=== PATIENT | female | born 1990 | race Caucasian/White ===

== ENCOUNTER 2020-09-01 15:35 | Emergency (ER) | payer OTHER ==
[~2020-09-01] VITALS: Ht 154.9 cm; Wt 59.0 kg
[~2020-09-01 15:35] MED LIST: NAPR220C2 PO
[2020-09-01 15:46] VITALS: BP 163/94
[2020-09-01 15:49] VITALS: BP 163/94
[2020-09-01] MEDS ORDERED: ADACEL VIAL IM ONE (16:23)
[2020-09-01] MEDS ORDERED: TRIPLE ANTIBIOTIC OINTMENT TP ONE (16:23)
--- NOTE | 2020-09-01 16:37 | DIREP ---
PROCEDURE:XRAY FOREARM 2 VWS-RT COMPARISON:None. INDICATIONS:RT ARM PAIN S/P FALL ON ICE FINDINGS: BONES:Normal. JOINTS:Normal. SOFT TISSUES:Normal. OTHER:No additional findings. CONCLUSION: 1. No acute fracture or dislocation. Dictated by: Chris Dillard MD on 09/01/2020 at 04:34 PM
--- NOTE | 2020-09-01 16:47 | ER.PDOC ---
General Chief Complaint: Extremities Stated Complaint: WRIST INJURY Time seen by MD: 16:30 Source: patient Exam Limitations: no limitations History of Present Illness Initial Comments pt fell 48 hours ago and sustained a hyperextension injury of her right wrist. no other injuries. Recent Injury: Yes Where: street Severity: moderate Exacerbated By: movement of Relieved By: rest Quality: pain Allergies: Coded Allergies: No Known Allergies (Unverified , 02/13/15) Home Meds Reported Medications Naproxen Sodium (ALEVE) 220 Mg Capsule, 220 MG PO DAILY, CAPSULE 02/15/16 Past Medical History Medical History: other (anemia) Surgical History: no surgical history, tonsillectomy LMP (females 10-50): last week Social History Alcohol Use: none Drug Use: marijuana Review of Systems Musculoskeletal: see HPI All Other Systems: Reviewed and Negative Physical Exam General Appearance: alert, no distress, other (wrist pain only on flex/extension. no pain with axial loading) Upper Extremity: tenderness Skin: color nml, warm/dry Vascular: no vascular compromise Neuro/Psych: sensation nml, motor nml Central Exam: oriented X3, CN's nml as tested, nml speech, nml cognition, nml mood/affect EENT: eyes nml inspection Neck/Back: nml inspection Respiratory: no resp distress CVS: reg rate & rhythm Abdomen: non-tender, nml bowels sounds Results/Orders Results/Orders Orders - HAIDER CORNEJO MD Xr Forearm Rt (09/01/20 16:14) Neomycin/Bacitracin/Polymyxinb (Triple A (09/01/20 16:23) Diph,Pertuss(Acell),Tet Vac/Pf (Adacel V (09/01/20 16:23) Vital Signs Date Time Temp Pulse Resp B/P (MAP) Pulse Ox O2 Delivery O2 Flow Rate FiO2 09/01/20 15:49 97.9 126 16 09/01/20 15:49 97.9 126 18 96 09/01/20 15:46 97.9 126 16 163/94 (117) 96 ER DEPART Departure Time of Disposition: 17:01 Disposition: 01 HOME, SELF-CARE Impression: Primary Impression: Sprain of other part of right wrist and hand, initial encounter Condition: Stable Referrals: PCP,UNKNOWN (PCP) PRIMARY CARE PROVIDER Comments toradol 10mg 1 po qid prn pain, #20 Duration or Time Spent with Pa: 7 min HAIDER CORNEJO MD Sep 01, 2020 16:47
== END 2020-09-01 17:30 | disposition home or self-care (01) ==
LOC: ER 15:35
DX: S63.8X1A Sprain of other part of right wrist and hand, initial encounter (principal); F12.90 Cannabis use, unspecified, uncomplicated; W19.XXXA Unspecified fall, initial encounter; Y93.89 Activity, other specified; Y92.488 Other paved roadways as the place of occurrence of the external cause; Y99.8 Other external cause status
CPT/HCPCS: 90715; 99284; 73090-RT